=== PATIENT | male | born 1960 ===

== ENCOUNTER → 2024-11-18 | Outpatient (CLI) | payer OTHER | END | disposition home or self-care (01) | LOC: SONOGRAMA 08:28 | PROVIDERS: ATTEND Urology | DX: N40.0 Benign prostatic hyperplasia without lower urinary tract symptoms (principal); R10.84 Generalized abdominal pain ==

== ENCOUNTER 2025-07-23 09:50 | Outpatient (CLI) | payer OTHER | END 2025-07-23 09:53 | disposition home or self-care (01) | LOC: SONOGRAMA 09:50 | DX: M79.672 Pain in left foot (principal); S96.902A Unspecified injury of unspecified muscle and tendon at ankle and foot level, left foot, initial encounter; X58.XXXA Exposure to other specified factors, initial encounter; Y93.9 Activity, unspecified; Y92.9 Unspecified place or not applicable; Y99.9 Unspecified external cause status ==